=== PATIENT | male | born 1950 ===

== ENCOUNTER 2020-09-23 08:53 | Emergency (ER) | payer OTHER ==
[~2020-09-23] VITALS: Ht 167.6 cm; Wt 79.8 kg
[2020-09-23] MEDS ORDERED: METFORMIN HCL500 M3 (09:06)
[2020-09-23] MEDS ORDERED: ZYLOPRIM300 MG (09:10)
[2020-09-23] MEDS ORDERED: GLIMEPIRIDE1 MG (09:10)
[2020-09-23] MEDS ORDERED: LOSARTAN-HCTZ1 EAC2 (09:11)
== END 2020-09-23 14:59 | disposition home or self-care (01) ==
LOC: ER 08:53 → CPU-OBS 09:10 → ER 09:10
DX: R07.89 Other chest pain (principal)